=== PATIENT | male | born 1955 | race Caucasian/White ===

== ENCOUNTER 2020-06-12 07:30 | Observation (INO) ==
[~2020-06-12 07:30] MED LIST: Buffered Lidocaine 1% SYRIN 1 ml INTRADERM ONE; Famotidine IV 10 MG/ML 2 ml VIAL (20 mg) IV ONE; Lactated Ringers 1000 ml BAG 1,000 ML IV SCH
[2020-06-12] MEDS ORDERED: Glycopyrrolate IV 0.2 MG/ML 1 ML VIAL ONE (08:18)
[2020-06-12] MEDS ORDERED: Propofol 10 MG/ML 20 ML BTL ONE ×2 (08:18→10:15)
[2020-06-12] MEDS ORDERED: Propofol 0 MG/0 ML BTL ONE (08:18)
[2020-06-12] MEDS ORDERED: Lidocaine 2% PF 5 ML VIAL ONE ×2 (08:18→09:23)
[2020-06-12] MEDS ORDERED: ceFAZolin 2 GM PREMIX 2 GM/50 ML BAG ONE (08:32)
[2020-06-12] MEDS ORDERED: Famotidine IV 10 MG/ML 2 ml VIAL (20 mg) ONE (08:32)
[2020-06-12] MEDS ORDERED: Buffered Lidocaine 1% SYRIN 1 ml INTRADERM ONE (08:41)
[2020-06-12] MEDS ORDERED: fentaNYL 100 mcg/2 ml 50 MCG/ML VIAL ONE ×2 (09:22→09:35)
[2020-06-12] MEDS ORDERED: Midazolam 5 mg/5 ml VIAL 1 mg/ml 5 ml VIAL (5 mg) ONE (09:22)
[2020-06-12] MEDS ORDERED: ROPIVACAINE 5 MG/ML 30 ML BTL (0.5%) ONE ×2 (09:23→09:44)
[2020-06-12] MEDS ORDERED: Magnesium Hydroxide LIQ 30 ML UDC PO PRN (09:27)
[2020-06-12] MEDS ORDERED: Ondansetron 4 mg VIAL 2 MG/ML 2 ml VIAL IV PRN ×2 (09:27→12:00)
[2020-06-12] MEDS ORDERED: Ondansetron ODT 4 mg TAB 4 MG TAB PO PRN (09:27)
[2020-06-12] MEDS ORDERED: diPHENhydraMINE 25 mg TAB PO PRN (09:27)
[2020-06-12] MEDS ORDERED: diPHENhydraMINE IV 50 MG/ML 1 ml VIAL (BENADRYL) IV PRN (09:27)
[2020-06-12] MEDS ORDERED: Morphine 2 MG/ML SYRINGE IV PRN (09:27)
[2020-06-12] MEDS ORDERED: Lactulose 30 ml UDC PO PRN (09:27)
[2020-06-12] MEDS ORDERED: HYDROmorphone 1 MG/1 ML SYRINGE ONE (09:35)
[2020-06-12] MEDS ORDERED: Rocuronium 50 mg VIAL 10 mg/ml 5 ml VIAL (50 mg) ONE (09:35)
[2020-06-12] MEDS ORDERED: Dexamethasone IV 4 MG/ML VIAL 1 ml VIAL ONE (09:35)
[2020-06-12] MEDS ORDERED: Ondansetron 4 mg VIAL 2 MG/ML 2 ml VIAL ONE (09:35)
[2020-06-12] MEDS ORDERED: Lactated Ringers 1000 ml BAG 1,000 ML IV SCH (10:00)
[2020-06-12] MEDS ORDERED: EPHEDrine (Pressors) 50 MG/ML VIAL ONE ×2 (10:26→11:53)
[2020-06-12] MEDS ORDERED: Phenylephrine IV 10 MG/ML 1 ml VIAL ONE (10:26)
[2020-06-12] MEDS ORDERED: Ketamine HCL 50 mg/ml 10 ml VIAL (500 MG) ONE (10:52)
[2020-06-12] MEDS ORDERED: fentaNYL 100 mcg/2 ml 50 MCG/ML VIAL IV PRN (12:00)
[2020-06-12] MEDS ORDERED: Naloxone 0.4 mg VIAL 0.4 mg/ml 1 ml VIAL IV PRN (12:00)
[2020-06-12] MEDS ORDERED: HYDROmorphone 1 MG/1 ML SYRINGE IV PRN (12:00)
[2020-06-12] MEDS: DOXYCYCLINE 100 MG PO SCH (18:11)
[2020-06-12] MEDS: ceFAZolin 1 GM ADVAN 1 GM in NS 0.9% 50 ML 50 ML IVPB SCH (18:12)
[2020-06-12] MEDS: Magnesium Hydroxide LIQ 30 ML UDC PO SCH (21:19)
[2020-06-13] MEDS: ceFAZolin 1 GM ADVAN 1 GM in NS 0.9% 50 ML 50 ML IVPB SCH ×2 (03:36→10:28)
[2020-06-13 05:26] LABS: Hematocrit 30 % (42-52); Hemoglobin 10.8 g/dL (14.0-18.0); Mean Platelet Volume 7.2 fL (7.4-10.4); Platelet Count 232 10^3/uL (150-450)
[2020-06-13 05:46] LABS: BUN/Creatinine Ratio 13.5 (8-20); Calcium 8.8 mg/dL (8.6-10.3); EGFR African American 128.8 (>60); EGFR Non-African American 106.5 (>60); Potassium 3.9 mmol/L (3.5-5.0)
[2020-06-13] MEDS: DOXYCYCLINE 100 MG PO SCH (06:43)
[2020-06-13] MEDS: Magnesium Hydroxide LIQ 30 ML UDC PO SCH (08:47)
[2020-06-13] MEDS ORDERED: Vitamin THERAPEUTIC TAB PO SCH (09:00)
[2020-06-13 12:26] VITALS: BP 113/68
== END 2020-06-13 14:50 | disposition home or self-care (01) ==
LOC: AA 08:14 → INTOOBSV 08:14 → SSU 14:01
PROVIDERS: ADMIT Orthopaedic Surgery Adult Reconstructive Orthopaedic Surgery; ATTEND Orthopaedic Surgery Adult Reconstructive Orthopaedic Surgery